=== PATIENT | female | born 1985 | race Caucasian/White ===

== ENCOUNTER 2025-08-01 18:57 | Emergency (ER) | payer SELFPAY ==
[~2025-08-01] VITALS: Ht 172.7 cm; Wt 72.0 kg
[~2025-08-01 18:57] MED LIST: CYCL-1 PO
[2025-08-01 18:58] VITALS: BP 143/77; PULSE 110; RESP 20; O2SAT 98
--- NOTE | 2025-08-01 19:25 | RADIOLOGY REPORT ---
CHEST RADIOGRAPH Indication: Cough Technique: Frontal and lateral view of the chest was obtained Comparison: None FINDINGS: Lines and Tubes: None Lungs: Right upper lobe pneumonia. Pleura: No effusion. No pneumothorax. Cardiomediastinal contours: Unremarkable Bones: Unremarkable IMPRESSION: 1. Right upper lobe pneumonia.
[2025-08-01 20:04] LABS: MEAN PLATELET VOLUME 8.7 FL (7.4-10.4); RED CELL DISTRIBUTION WIDTH 16.0 % (11.5-14.5)
[2025-08-01 20:25] LABS: INFLUENZA TYPE A ANTIGEN RAPID NEGATIVE (Negative); INFLUENZA TYPE B ANTIGEN RAPID NEGATIVE (Negative)
[2025-08-01 20:27] LABS: CREATININE 0.73 MG/DL (0.40-0.90); PRO BRAIN NATRIURETIC PEPTIDE 53 PG/ML (0-125); TOTAL CARBON DIOXIDE 24.5 MMOL/L (24-32); eCRCL 104 ML/MIN; eGFR 89 ML/MIN
[2025-08-01] MEDS ORDERED: DOXY-1 PO (21:09)
--- NOTE | 2025-08-01 21:10 | Physician Documentation ---
History of Present Illness ~ Chief Complaint: Cold, cough & congestion Stated Complaint: COUGH/VOMITING Time Seen by MD: 19:17 Primary Medical Doctor: NONE HPI Patient is a very pleasant 40-year-old female that presents to the emergency department for evaluation of cough congestion headache fever chills nausea vomiting diarrhea times several days. Reports he has been taking Tylenol and ibuprofen. Patient reports that she feels unwell feels like her chest is tight when she tries to take a deep breath. Other symptoms reported at this time. Medication Reconciliation Allergies: Coded Allergies: No Known Allergies (Unverified , 06/18/23) Scheduled Cyclobenzaprine* (Cyclobenzaprine*), 1 TAB PO HS Past Medical History Past Medical History: No Pertinent History Past Surgical History: cholecystectomy Alcohol Use: None Drug Use: none Occupation: employed Review of Systems ROS As stated above in the HPI, otherwise all systems are reviewed and negative. Physical Exam Vital Signs: Temperature: 98.4, Heart Rate: 110, Respiratory Rate: 20, BP: 143/77, Pulse Oximetry: 98, Weight: 72.000 Physical Exam VITALS: Reviewed and as above. GENERAL: Alert, no apparent distress. HEENT: Normocephalic, atraumatic, PERRL, EOMI, dry mucosa, no erythema RESPIRATORY: Moving air well into the lower bases, rhonchi noted in the right lung with inspiratory expiratory wheezing cleared with coughing. CHEST: No accessory muscle use, no retractions CV: Regular rate, rhythm, no edema, no murmur, No: JVD GI: Soft, non-tender, bowels sounds present, no rebound, guarding, or rigidity BACK: No CVA tenderness, or swelling MUSCULOSKELETAL No deformities, no edema SKIN: Warm and dry, no rash NEURO: Oriented x4, No motor or sensory deficit PSYCH: Normal mood and affect, no agitation Progress Results/Orders Results/Orders Completed Orders - KWABENA NATHAN Influenza Type A&B Rapid Test (08/01/25 19:09) Vital Signs 08/01/25 18:58 Temp 98.4 Pulse 110 Resp 20 B/P (MAP) 143/77 Pulse Ox 98 Laboratory Tests Test 08/01/25 19:09 08/01/25 19:27 Influenza Type A Antigen Negative Influenza Type B Antigen Negative SARS-CoV-2 Antigen (Rapid) Negative White Blood Count 7.5 Red Blood Count 4.52 Hemoglobin 11.1 L Hematocrit 33.9 L Mean Corpuscular Volume 75.0 L Mean Corpuscular Hemoglobin 24.5 L Mean Corpuscular Hemoglobin Concent 32.7 L Red Cell Distribution Width 16.0 H Platelet Count 297 Mean Platelet Volume 8.7 Neutrophils (%) (Auto) 74.3 Lymphocytes (%) (Auto) 15.9 L Monocytes (%) (Auto) 8.0 Eosinophils (%) (Auto) 1.6 Basophils (%) (Auto) 0.2 Neutrophils # (Auto) 5.5 Lymphocytes # (Auto) 1.2 Monocytes # (Auto) 0.6 Eosinophils # (Auto) 0.1 Basophils # (Auto) 0.0 CBC Comment Sodium Level 139 Potassium Level 3.5 Chloride Level 103 Carbon Dioxide Level 24.5 Anion Gap 12 Blood Urea Nitrogen 9 Creatinine 0.73 Estimated GFR/1.73 m2 89 BUN/Creatinine Ratio 12.3 Glucose Level 110 H Calcium Level 8.4 L Pro-B-Type Natriuretic Peptide 53 Albumin 3.4 Chemistry Comments Medical Decision Making Additional information obtaine: other Findings Medical Decision-Making (MDM) Discharge Summary Chief Complaint: Several days of cough, congestion, sore throat, fevers, nausea, vomiting, and diarrhea. Assessment: 50-year-old female presented with symptoms consistent with lower res piratory tract infection. Chest X-ray demonstrated right upper lobe pneumonia. COVID-19, influenza A, and influenza B testing were negative. No evidence of hypoxemia, hemodynamic instability, or other complications. No significant comorbidities or social factors precluding outpatient care. Risk Stratification: Patient is under 65 years old, with no confusion, hypotension, tachypnea, or renal dysfunction. Based on clinical judgment and supported by CURB-65 and Pneumonia Severity Index (PSI) criteria, she is low risk for short-term mortality and adverse outcomes, and is appropriate for outpatient management. Treatment Plan: Outpatient antibiotic therapy for community-acquired pneumonia. Empiric options include amoxicillin, doxycycline, or a macrolide (if local pneumococcal resistance is <25%), or a respiratory fluoroquinolone if comorbidities or beta-lactam allergy are present. No risk factors for MRSA or Pseudomonas identified. Disposition: Patient is clinically stable, able to tolerate oral intake, and has reliable follow-up. Discharged home with strict return precautions for any worsening, recurrent, or new symptoms (e.g., increased dyspnea, chest pain, persistent vomiting, confusion, or inability to tolerate oral medications). Advised to follow up with primary care provider. Follow-Up: Outpatient follow-up with PCP recommended within 1 week. No routine follow-up chest imaging indicated unless symptoms persist or risk factors for malignancy exist. Patient Education: Discussed diagnosis, treatment plan, medication instructions, and return precautions in detail. Differential Dx:Considerations: Include: Allergic rhinitis, Influenza, Otitis media, Peritonsillar abscess, Pharyngitis-Diphtheria, Pharyngitis-Streptoccal, Pharyngitis-Viral, Pneumonia, Pnuemonitis, Sinusitis, URI, Other Departure Disposition: 01 HOME / SELF CARE / HOMELESS Impression: Primary Impression: Right upper lobe pneumonia Discharge Instructions: Community-Acquired Pneumonia, Adult, [id number], Cough, Adult, Upper Respiratory Infection, Adult Additional Instructions: You are being discharged from the emergency department after being diagnosed with pneumonia in your right upper lung. Your tests for COVID-19 and influenza were negative. You will be taking doxycycline 100 mg by mouth twice daily for 10 days to treat your infection. Medication Instructions: Take doxycycline 100 mg twice daily (every 12 hours) for 10 days, as prescribed. Take with a full glass of water and remain upright for at least 30 minutes after each dose to reduce stomach upset. Do not take doxycycline with dairy products, antacids, or supplements containing calcium, magnesium, or iron, as these can reduce how well the medicine works. Finish the entire course of antibiotics, even if you start to feel better. What to Expect: Most people begin to feel better within 34 days of starting antibiotics. It is normal to have some cough and fatigue for several days. If you are not improving after 35 days, or if you cannot eat, have persistent fever, or feel confused, contact your doctor. Follow-Up: Schedule an appointment with your primary care provider within 1 week for follow-up and to ensure recovery. Return to the Emergency Department Immediately If You Experience: Difficulty breathing or shortness of breath Chest pain High fever that does not improve Severe weakness, confusion, or trouble waking up Persistent vomiting or inability to keep fluids down Worsening cough, congestion, or new symptoms Other Instructions: Rest and drink plenty of fluids. Avoid smoking and exposure to secondhand smoke. Use acetaminophen or ibuprofen for fever or discomfort, unless otherwise instructed. If you have any questions about your medication or symptoms, contact your primary care provider. Thank you for trusting us with your care. Referrals: NO PRIMARY CARE PROVIDER (PCP) Prescriptions Doxycycline Hyclate (Doxycycline Hyclate) 100 Mg Capsule 1 CAP PO Q12H for 10 Days, #20 CAP Prov: KWABENA NATHAN 08/01/25 Education Educated: Patient Educated regarding: diagnosis, treatment, need for follow up KWABENA NATHAN Aug 01, 2025 21:10
[2025-08-01 21:12] VITALS: TEMP 98.4
[2025-08-01] MEDS: DOXYCYCLINE 100MG CAPSULE PO STA (21:17)
== END 2025-08-01 21:21 | disposition home or self-care (01) ==
LOC: ER 18:57
DX: J18.9 Pneumonia, unspecified organism (principal); R06.02 Shortness of breath; Z90.49 Acquired absence of other specified parts of digestive tract; Z20.822 Contact with and (suspected) exposure to COVID-19
CPT/HCPCS: 36415; 71046; 80048; 83880; 85025; 87804; 87811; 99284